=== PATIENT | female | born 1960 | race Caucasian/White ===

== ENCOUNTER 2020-04-07 14:30 | Inpatient (IN) | payer BC ==
[~2020-04-07] VITALS: Ht 160 cm; Wt 66.2 kg
--- NOTE | 2020-04-07 17:33 | NUR ---
Patient arrived from [facility] accompanied by flight nurses. Pt. in stable condition. Vital signs taken, placed on tele and 2 RN skin check completed.
[2020-04-07 17:36] VITALS: BP 112/56
[2020-04-07] MEDS ORDERED: mag hydrox/Alum hydrox/simeth 30ml oral suspension PO PRN (17:50)
[2020-04-07] MEDS ORDERED: acetaminophen 325mg tablet PO PRN (17:50)
[2020-04-07] MEDS ORDERED: ondansetron/PF 4mg/2ml inj IV PRN (17:50)
[2020-04-07] MEDS ORDERED: morphine 2 MG/ML inj. syringe IV PRN ×2 (17:50)
[2020-04-07] MEDS ORDERED: magnesium hydroxide 30ml (MOM) UD suspension PO PRN (17:50)
--- NOTE | 2020-04-07 18:24 | NUR ---
Problems reprioritized. Patient report given, questions answered & plan of care reviewed with Petty SIMPSON and Steven SIMPSON.
[2020-04-07] MEDS ORDERED: ASPI81TA52 PO (18:44)
--- NOTE | 2020-04-07 18:51 | NUR ---
Patient in room PCU 3018. I have received report from Carlee SIMPSON and had the opportunity to ask questions and assume patient care.
[2020-04-07] MEDS ORDERED: NICO-687 TOP (19:07)
[2020-04-07 19:09] LABS: BASOPHILS # (AUTO) 0.1 X10'3 (0-0.2); BASOPHILS % (AUTO) 0.7 % (0-1); EOSINOPHILS % (AUTO) 0.1 % (0-6); HEMATOCRIT 30.7 % (35.0-45.0); HEMOGLOBIN 10.2 g/dl (12.0-16.0); LYMPHOCYTES # (AUTO) 1.1 X10'3 (1.1-4.8); LYMPHOCYTES % (AUTO) 10.9 % (21-51); MEAN CORPUSCULAR HEMOGLOBIN 31.6 PG (27.0-31.0); MEAN CORPUSCULAR HGB CONC 33.1 g/dL (33.0-36.5); MEAN CORPUSCULAR VOLUME 95.5 FL (78-98); MEAN PLATELET VOLUME 8.7 FL (7.4-10.4); MONOCYTES # (AUTO) 0.4 X10'3 (0-0.9); MONOCYTES % (AUTO) 4.1 % (2-12); NEUTROPHILS # (AUTO) 8.8 X10'3 (1.8-7.7); NEUTROPHILS % (AUTO) 84.2 % (42-75); PLATELET COUNT 279 X10'3 (140-440); RED BLOOD COUNT 3.22 X10'6 (4.20-5.60); RED CELL DISTRIBUTION WIDTH 13.6 % (11.5-14.5); WHITE BLOOD COUNT 10.5 X10'3 (4.5-11.0)
[2020-04-07 19:24] LABS: ALANINE AMINOTRANSFERASE 14 U/L (12-78); ALBUMIN 3.6 G/DL (3.4-5.0); ALKALINE PHOSPHATASE 68 IU/L (46-116); ANION GAP 13 (8-16); ASPARTATE AMINO TRANSFERASE 13 U/L (10-37); BILIRUBIN,TOTAL 0.9 MG/DL (0.1-1.0); BLOOD UREA NITROGEN 13 MG/DL (7-18); BUN/CREATININE RATIO 17.6 (6.6-38.0); CALCIUM 8.9 MG/DL (8.5-10.1); CHLORIDE 105 MMOL/L (99-107); CREATININE 0.74 MG/DL (0.40-0.90); GLUCOSE 125 MG/DL (70-104); SODIUM 137 MMOL/L (135-145); TOTAL CARBON DIOXIDE 19.2 MMOL/L (24-32); TOTAL PROTEIN 7.3 G/DL (6.4-8.2); eGFR 80 ML/MIN
[2020-04-07] MEDS: furosemide 40mg/4ml inj IV SCH (21:38)
[2020-04-07] MEDS: heparin, porcine 5000 units/ml vial SQ SCH (21:40)
[2020-04-07 22:00] VITALS: BP 100/74
[2020-04-08] VITALS (7 sets, daily range): BP systolic 74–103; BP diastolic 34–67
--- NOTE | 2020-04-08 05:30 | NUR ---
Orientee documentation: I have reviewed and agree with all interventions, assessments performed and documented by Steven SIMPSON. [place]ee Medication Administration: For this medication-pass time frame, all medication were reviewed, dispensed, administered and documented per hospital policy by Steven SIMPSON.
[2020-04-08 05:56] LABS: BASOPHILS # (AUTO) 0.1 X10'3 (0-0.2); BASOPHILS % (AUTO) 0.6 % (0-1); EOSINOPHILS # (AUTO) 0.1 X10'3 (0-0.9); EOSINOPHILS % (AUTO) 0.7 % (0-6); HEMATOCRIT 30.1 % (35.0-45.0); HEMOGLOBIN 10.2 g/dl (12.0-16.0); LYMPHOCYTES # (AUTO) 2.3 X10'3 (1.1-4.8); LYMPHOCYTES % (AUTO) 20.9 % (21-51); MEAN CORPUSCULAR HEMOGLOBIN 31.8 PG (27.0-31.0); MEAN CORPUSCULAR HGB CONC 33.8 g/dL (33.0-36.5); MEAN CORPUSCULAR VOLUME 94.2 FL (78-98); MONOCYTES % (AUTO) 8.9 % (2-12); NEUTROPHILS # (AUTO) 7.5 X10'3 (1.8-7.7); NEUTROPHILS % (AUTO) 68.9 % (42-75); PLATELET COUNT 275 X10'3 (140-440); RED CELL DISTRIBUTION WIDTH 13.7 % (11.5-14.5); WHITE BLOOD COUNT 10.9 X10'3 (4.5-11.0)
[2020-04-08 06:07] LABS: ALBUMIN 3.5 G/DL (3.4-5.0); ANION GAP 13 (8-16); BLOOD UREA NITROGEN 16 MG/DL (7-18); BUN/CREATININE RATIO 19.5 (6.6-38.0); CALCIUM 8.8 MG/DL (8.5-10.1); CHLORIDE 104 MMOL/L (99-107); CREATININE 0.82 MG/DL (0.40-0.90); GLUCOSE 101 MG/DL (70-104); POTASSIUM 3.4 MMOL/L (3.5-5.1); SODIUM 138 MMOL/L (135-145); TOTAL CARBON DIOXIDE 21.4 MMOL/L (24-32); eGFR 71 ML/MIN
--- NOTE | 2020-04-08 06:12 | NUR ---
Patient in room PCU 3018. I have received report from Ro SIMPSON and had the opportunity to ask questions and assume patient care. Patient awake and oriented, offers no complaints, will continue to monitor.
--- NOTE | 2020-04-08 06:28 | NUR ---
Patient in room PCU 3018. I have received report from Petty SIMPSON and had the opportunity to ask questions and assume patient care. Patient awake and oriented, questioning when the doctor will be in today, offers no complaints, will continue to monitor.
--- NOTE | 2020-04-08 06:29 | NUR ---
Problems reprioritized. Patient report given, questions answered & plan of care reviewed with Geena SIMPSON.
[2020-04-08] MEDS: potassium Cl 20 mEq SR tablet PO SCH ×2 (07:42→20:19)
[2020-04-08] MEDS: furosemide 40mg/4ml inj IV SCH (07:43)
[2020-04-08] MEDS: heparin, porcine 5000 units/ml vial SQ SCH ×2 (07:43→20:18)
--- NOTE | 2020-04-08 08:00 | NUR ---
Spoke with Dr. Eng at nursing station, new orders obtained for tylenol, nicotine patch and melatonin.
[2020-04-08] MEDS ORDERED: acetaminophen 325mg tablet PO PRN (10:20)
--- NOTE | 2020-04-08 10:53 | NUR ---
Student Medication Administration: For this medication-pass time frame, all medication were reviewed, dispensed, administered and documented per hospital policy by Maricarmen, inpatient nursing aide.
--- NOTE | 2020-04-08 10:53 | NUR ---
Student documentation: I have reviewed and agree with all interventions, assessments performed and documented by Maricarmen, nursing manager.
[2020-04-08] MEDS: LORazepam 0.5 MG tablet PO PRN ×2 (11:03→20:19)
[2020-04-08] MEDS: nicotine 21mg patch - 24 hr TD SCH (11:03)
--- NOTE | 2020-04-08 12:01 | NUR ---
Problems reprioritized. Patient report given, questions answered & plan of care reviewed with Geena.
[2020-04-08] MEDS: Melatonin 3mg tablet PO SCH (20:19)
--- NOTE | 2020-04-08 23:15 | NUR ---
Spoke with Dr. Griffiths regarding patient's hypotension. Patient is asymptomatic, other vitals are stable including heart rate average in the 70s and SPO2 in the high 90s. Discussed history and admit diagnosis including mitral valve regurgitation and avoiding fluid boluses. No new orders at this time, will continue to monitor closely.
[2020-04-09] VITALS (17 sets, daily range): BP systolic 72–103; BP diastolic 25–77
[2020-04-09 05:09] LABS: BASOPHILS # (AUTO) 0.1 X10'3 (0-0.2); EOSINOPHILS # (AUTO) 0.2 X10'3 (0-0.9); EOSINOPHILS % (AUTO) 1.7 % (0-6); HEMATOCRIT 28.8 % (35.0-45.0); LYMPHOCYTES # (AUTO) 2.6 X10'3 (1.1-4.8); LYMPHOCYTES % (AUTO) 27.1 % (21-51); MEAN CORPUSCULAR HEMOGLOBIN 32.8 PG (27.0-31.0); MEAN CORPUSCULAR HGB CONC 34.9 g/dL (33.0-36.5); MEAN PLATELET VOLUME 9.3 FL (7.4-10.4); MONOCYTES % (AUTO) 10.8 % (2-12); NEUTROPHILS # (AUTO) 5.6 X10'3 (1.8-7.7); NEUTROPHILS % (AUTO) 59.4 % (42-75); PLATELET COUNT 272 X10'3 (140-440); RED BLOOD COUNT 3.06 X10'6 (4.20-5.60); RED CELL DISTRIBUTION WIDTH 13.6 % (11.5-14.5); WHITE BLOOD COUNT 9.5 X10'3 (4.5-11.0)
[2020-04-09 05:30] LABS: ALBUMIN 3.3 G/DL (3.4-5.0); ANION GAP 11 (8-16); BLOOD UREA NITROGEN 20 MG/DL (7-18); CALCIUM 9.1 MG/DL (8.5-10.1); CHLORIDE 104 MMOL/L (99-107); CREATININE 0.74 MG/DL (0.40-0.90); GLUCOSE 95 MG/DL (70-104); POTASSIUM 4.3 MMOL/L (3.5-5.1); SODIUM 136 MMOL/L (135-145); eGFR 80 ML/MIN
--- NOTE | 2020-04-09 06:37 | NUR ---
Problems reprioritized. Patient report given, questions answered & plan of care reviewed with Pat RN.
[2020-04-09] MEDS: heparin, porcine 5000 units/ml vial SQ SCH (08:00)
--- NOTE | 2020-04-09 09:00 | NUR ---
PATIENT'S B/P LOW DR. PAYNE AWARE. PATIENT DENIES C/P AND OR NAUSEA; HOWEVER, SOB NOTED.O2 SATS 97% ON ROOM AIR. BREATH SOUNDS WITH COARSE CRACKLES AT POSTERIOR BASES.HOB UP CALL LIGHT IN REACH. Addendum: 04/09/20 at 1446 by Jhoana Brooks RN Amended: Links added.
[2020-04-09] MEDS: nicotine 21mg patch - 24 hr TD SCH (09:33)
[2020-04-09] MEDS: potassium Cl 20 mEq SR tablet PO SCH (09:33)
--- NOTE | 2020-04-09 10:16 | NUR ---
Per telephone order from Dr. Johnson, 3 sets of 2 blood cultures ordered, to be drawn 20 minutes apart to rule out endocarditis.
--- NOTE | 2020-04-09 11:00 | NUR ---
DR. VARELA INTO SEE PATIENT AT THIS TIME AND REVIEWED RESULTS OF ECHO ALONG WITH PLAN OF CARE. DISCUSSED HEART CATH WITH PATIENT. PATIENT STATES " UNDERSTANDING OF PLAN " . PREP FOR WET PAN MIXER COMPLETED; PEDAL PULSE MARKED. Addendum: 04/09/20 at 1436 by Jhoana Brooks RN Amended: Links added.
[2020-04-09] MEDS: LORazepam 0.5 MG tablet PO PRN (12:10)
[2020-04-09] MEDS ORDERED: CefTRIAXone 2gm/D5W 50ml BAG 50 ML IV SCH (12:40)
[2020-04-09] MEDS ORDERED: midazolam 2 mg/2 ml injection ONE (13:26)
[2020-04-09] MEDS ORDERED: fentaNYL/PF 50MCG/1 ML 2ML syringe ONE (13:26)
[2020-04-09] MEDS ORDERED: LIDOcaine 1% (10mg/ml)w/preservative injection 20ml MDV ONE (13:26)
[2020-04-09] MEDS ORDERED: iohexol 350 MG/ML 50ML vial IV ONE (13:26)
[2020-04-09] MEDS ORDERED: iohexol 350MG/ML 100ml bottle IV ONE (13:26)
[2020-04-09] MEDS ORDERED: heparin 1,000 UNITS/NS 500ml 500 ML ONE ×2 (13:27)
--- NOTE | 2020-04-09 15:00 | NUR ---
RETURNED FROM [facility] MACHINE OPERATOR. VS STABLE. RIGHT AND LEFT GROIN DRESSING CDI. PEDAL PULSES POSITIVE PER PALPATION. BED FLAT CALL LIGHT IN REACH. Addendum: 04/09/20 at 2007 by Jhoana Brooks RN Amended: Links added.
--- NOTE | 2020-04-09 15:27 | NUR ---
RETURNED FROM [facility] AT THIS TIME. RT GROIN DRESSING CDI, PEDAL PULSES POSITIVE PER PALPATION. LEFT GROIN DRESSING CDI. PHARMACY NOTIFIED THAT WE HAVE NOT RECEIVED IV ANTIBIOTIC ORDERED FOR PATIENT EARLIER THIS SHIFT.PATIENT C/O BACK PAIN OF 02/27; MEDICATED WITH 2MG OF MORPHINE SULFATE IV. Addendum: 04/09/20 at 1536 by Jhoana Brooks RN Amended: Links added.
[2020-04-09] MEDS ORDERED: HYDROcodone/acetaminophen 10/325mg tab PO PRN (15:45)
[2020-04-09] MEDS ORDERED: ondansetron/PF 4mg/2ml inj IV PRN (15:45)
[2020-04-09] MEDS ORDERED: proCHLORperazine 10 MG/2 ml inj IV PRN (15:45)
[2020-04-09] MEDS ORDERED: HYDROcodone/acetaminophen 5mg/325mg tablet PO PRN (15:45)
[2020-04-09] MEDS ORDERED: OXAZEpam 15mg capsule PO PRN (15:45)
[2020-04-09] MEDS ORDERED: sodium chloride 0.45% 1,000 ML IV ONE (15:45)
[2020-04-09] MEDS: Melatonin 3mg tablet PO SCH (20:52)
[2020-04-10 02:00] VITALS: BP 95/65
[2020-04-10] MEDS: vancomycin/NS 1 GM ADD-VANTAGE 250 ML X 1 DOSE IV SCH ×3 (02:48→13:56)
--- NOTE | 2020-04-10 06:19 | NUR ---
Problems reprioritized. Patient report given, questions answered & plan of care reviewed with Juan Manuel SIMPSON.
[2020-04-10 06:32] LABS: BASOPHILS % (AUTO) 0.5 % (0-1); EOSINOPHILS # (AUTO) 0.1 X10'3 (0-0.9); EOSINOPHILS % (AUTO) 1.1 % (0-6); HEMATOCRIT 26.9 % (35.0-45.0); HEMOGLOBIN 9.3 g/dl (12.0-16.0); LYMPHOCYTES # (AUTO) 1.9 X10'3 (1.1-4.8); LYMPHOCYTES % (AUTO) 20.4 % (21-51); MEAN CORPUSCULAR HEMOGLOBIN 32.7 PG (27.0-31.0); MEAN CORPUSCULAR HGB CONC 34.6 g/dL (33.0-36.5); MEAN CORPUSCULAR VOLUME 94.5 FL (78-98); MEAN PLATELET VOLUME 9.2 FL (7.4-10.4); MONOCYTES # (AUTO) 0.8 X10'3 (0-0.9); MONOCYTES % (AUTO) 8.7 % (2-12); NEUTROPHILS # (AUTO) 6.3 X10'3 (1.8-7.7); NEUTROPHILS % (AUTO) 69.3 % (42-75); PLATELET COUNT 273 X10'3 (140-440); RED BLOOD COUNT 2.85 X10'6 (4.20-5.60); RED CELL DISTRIBUTION WIDTH 13.6 % (11.5-14.5); WHITE BLOOD COUNT 9.1 X10'3 (4.5-11.0)
[2020-04-10 06:44] LABS: ALBUMIN 3.1 G/DL (3.4-5.0); ANION GAP 8 (8-16); BLOOD UREA NITROGEN 18 MG/DL (7-18); CALCIUM 8.9 MG/DL (8.5-10.1); CHLORIDE 108 MMOL/L (99-107); CREATININE 0.75 MG/DL (0.40-0.90); GLUCOSE 91 MG/DL (70-104); POTASSIUM 4.6 MMOL/L (3.5-5.1); SODIUM 139 MMOL/L (135-145); TOTAL CARBON DIOXIDE 23.5 MMOL/L (24-32); eGFR 79 ML/MIN
[2020-04-10] MEDS: potassium Cl 20 mEq SR tablet PO SCH ×2 (08:15→17:28)
[2020-04-10] MEDS: nicotine 21mg patch - 24 hr TD SCH (08:15)
[2020-04-10] MEDS ORDERED: vancomycin/NS 1 GM ADD-VANTAGE 250 ML IV ONE (08:50)
[2020-04-10] MEDS ORDERED: gabapentin 400mg capsule PO ONE (08:50)
[2020-04-10] MEDS ORDERED: insulin glargine (Lantus) pen - multi-dose SQ PRN (08:50)
[2020-04-10] MEDS ORDERED: MALTODEXTRIN/FRUCTOSE 0.68 KCAL/ML LIQUID 296ML BOTTLE PO ONE (08:50)
[2020-04-10] MEDS ORDERED: MESSAGE TO NURSING PO ONE ×5 (08:50→10:00)
[2020-04-10] MEDS ORDERED: dextrose 50%-water 50ml dispensing syringe IV PRN (08:50)
[2020-04-10] MEDS ORDERED: Insulin Reg/NS 100units/100mL 100 ML IV SCH (08:50)
[2020-04-10] MEDS ORDERED: cefazolin/dext.iso 2gm/50ml 50 ML IV ONE (08:50)
[2020-04-10 09:46] LABS: PARTIAL THROMBOPLASTIN TIME 29 SECONDS (22-32)
[2020-04-10] MEDS ORDERED: pneumococcal 23-VAL P-sac vacc 25 mcg/0.5ml vial IMVAC ONE (10:20)
[2020-04-10] MEDS ORDERED: ringers solution, lacted 1,000 ML IV ONE (11:05)
--- NOTE | 2020-04-10 11:08 | NUR ---
Reviewed and agree with student's physical assessment.
[2020-04-10 12:00] VITALS: BP 102/63
[2020-04-10 12:10] LABS: ABG BASE EXCESS -5.8 mmol/L (-2.0-2.0); ABG HCO3 16.8 mmol/L (22.0-26.0); ABG OXYGEN SATURATION 95.6 % (94-97); ABG PCO2 (T) 24.1 mmHg (32.0-45.0); ABG PO2 (T) 79.6 mmHg (75.0-100.0); ALLEN'S TEST POSITIVE; FCOHb 0.3 % (0.0-3.9); FO2Hb 95.3 % (94-97); TOTAL HEMOGLOBIN 9.2 G/dl (12.0-16.0)
[2020-04-10 15:00] VITALS: BP 96/57
--- NOTE | 2020-04-10 15:57 | NUR ---
PAGER ID: [phone] MESSAGE: PEDRO [phone] Lee Alexander rapid response TATIANA Zambrano Ext [phone] Addendum: 04/10/20 at 1557 by Juan Manuel De La Garza RN wrong patient
--- NOTE | 2020-04-10 17:35 | NUR ---
dr. rick paged: PAGER ID: [phone] MESSAGE: [phone]: ASAD - surgery NOT until MON. super anxious. can we get order for Ativan PRN? thank you nurse Erika [phone]
--- NOTE | 2020-04-10 17:59 | NUR ---
Problems reprioritized. Patient report given, questions answered & plan of care reviewed with TATIANA Taylor.
[2020-04-10 18:00] VITALS: BP 98/54
[2020-04-10] MEDS: Melatonin 3mg tablet PO SCH (20:46)
[2020-04-10] MEDS: lactobacillus rhamnosus 10,000 MMU CELLS/CAPSULE PO SCH (20:46)
[2020-04-10] MEDS: LORazepam 2 mg/ml vial IV PRN (20:47)
[2020-04-10 22:00] VITALS: BP 85/49
[2020-04-11] MEDS: vancomycin/NS 1 GM ADD-VANTAGE 250 ML X 1 DOSE IV SCH (01:22)
[2020-04-11 02:00] VITALS: BP 91/59
[2020-04-11] MEDS ORDERED: LORazepam 2 mg/ml vial IV ONE (06:00)
[2020-04-11 06:04] LABS: BASOPHILS # (AUTO) 0.1 X10'3 (0-0.2); BASOPHILS % (AUTO) 0.9 % (0-1); EOSINOPHILS # (AUTO) 0.1 X10'3 (0-0.9); EOSINOPHILS % (AUTO) 2.1 % (0-6); HEMOGLOBIN 8.7 g/dl (12.0-16.0); LYMPHOCYTES # (AUTO) 2.1 X10'3 (1.1-4.8); LYMPHOCYTES % (AUTO) 33.1 % (21-51); MEAN CORPUSCULAR HEMOGLOBIN 31.7 PG (27.0-31.0); MEAN CORPUSCULAR HGB CONC 33.5 g/dL (33.0-36.5); MEAN CORPUSCULAR VOLUME 94.4 FL (78-98); MEAN PLATELET VOLUME 9.5 FL (7.4-10.4); MONOCYTES # (AUTO) 0.6 X10'3 (0-0.9); MONOCYTES % (AUTO) 9.4 % (2-12); NEUTROPHILS # (AUTO) 3.5 X10'3 (1.8-7.7); NEUTROPHILS % (AUTO) 54.5 % (42-75); PLATELET COUNT 257 X10'3 (140-440); RED BLOOD COUNT 2.75 X10'6 (4.20-5.60); RED CELL DISTRIBUTION WIDTH 13.8 % (11.5-14.5); WHITE BLOOD COUNT 6.5 X10'3 (4.5-11.0)
[2020-04-11 06:07] LABS: ALBUMIN 2.9 G/DL (3.4-5.0); ANION GAP 8 (8-16); BLOOD UREA NITROGEN 15 MG/DL (7-18); BUN/CREATININE RATIO 20.8 (6.6-38.0); CALCIUM 8.5 MG/DL (8.5-10.1); CHLORIDE 108 MMOL/L (99-107); CREATININE 0.72 MG/DL (0.40-0.90); GLUCOSE 92 MG/DL (70-104); POTASSIUM 4.6 MMOL/L (3.5-5.1); SODIUM 140 MMOL/L (135-145); eGFR 82 ML/MIN
--- NOTE | 2020-04-11 06:38 | NUR ---
Problems reprioritized. Patient report given, questions answered & plan of care reviewed with Pat RN.
[2020-04-11] MEDS: LORazepam 0.5 MG tablet PO PRN (07:23)
[2020-04-11] MEDS: nicotine 21mg patch - 24 hr TD SCH (07:23)
--- NOTE | 2020-04-11 11:44 | NUR ---
I have reviewed and agree with all medications administered and interventions performed by [facility] Student Macey Elizondo.
[2020-04-11] MEDS ORDERED: VANCOMYCIN LEVEL IV ONE (13:30)
[2020-04-11] MEDS ORDERED: VANCOmycin 1250MG/NS 250ml Bag 250 ML IV SCH (17:00)
[2020-04-11 18:00] VITALS: BP 104/56
[2020-04-11] MEDS: LORazepam 2 mg/ml vial IV PRN (20:24)
[2020-04-11] MEDS: Melatonin 3mg tablet PO SCH (20:24)
[2020-04-11 22:00] VITALS: BP 76/42
[2020-04-12] VITALS (17 sets, daily range): BP systolic 92–125; BP diastolic 50–66
[2020-04-12 03:00] LABS: BASOPHILS # (AUTO) 0.1 X10'3 (0-0.2); BASOPHILS % (AUTO) 0.8 % (0-1); EOSINOPHILS # (AUTO) 0.2 X10'3 (0-0.9); EOSINOPHILS % (AUTO) 2.4 % (0-6); HEMATOCRIT 27.2 % (35.0-45.0); LYMPHOCYTES # (AUTO) 2.1 X10'3 (1.1-4.8); LYMPHOCYTES % (AUTO) 26.5 % (21-51); MEAN CORPUSCULAR HGB CONC 33.2 g/dL (33.0-36.5); MEAN CORPUSCULAR VOLUME 93.2 FL (78-98); MONOCYTES # (AUTO) 0.7 X10'3 (0-0.9); MONOCYTES % (AUTO) 9.2 % (2-12); NEUTROPHILS # (AUTO) 4.9 X10'3 (1.8-7.7); NEUTROPHILS % (AUTO) 61.1 % (42-75); PLATELET COUNT 277 X10'3 (140-440); RED BLOOD COUNT 2.92 X10'6 (4.20-5.60); RED CELL DISTRIBUTION WIDTH 13.8 % (11.5-14.5); WHITE BLOOD COUNT 8.1 X10'3 (4.5-11.0)
[2020-04-12 03:03] LABS: ALBUMIN 3.2 G/DL (3.4-5.0); ANION GAP 12 (8-16); BLOOD UREA NITROGEN 18 MG/DL (7-18); BUN/CREATININE RATIO 23.1 (6.6-38.0); CALCIUM 8.8 MG/DL (8.5-10.1); CHLORIDE 104 MMOL/L (99-107); CREATININE 0.78 MG/DL (0.40-0.90); GLUCOSE 103 MG/DL (70-104); POTASSIUM 3.9 MMOL/L (3.5-5.1); SODIUM 138 MMOL/L (135-145); TOTAL CARBON DIOXIDE 21.8 MMOL/L (24-32); eGFR 75 ML/MIN
[2020-04-12 04:39] LABS: PARTIAL THROMBOPLASTIN TIME 29 SECONDS (22-32)
[2020-04-12] MEDS: mupirocin 2% nasal ointment 1gm UD NS SCH ×2 (05:27→19:59)
[2020-04-12] MEDS ORDERED: ringers solution, lacted 1,000 ML IV ONE (06:00)
[2020-04-12] MEDS ORDERED: MALTODEXTRIN/FRUCTOSE 0.68 KCAL/ML LIQUID 296ML BOTTLE PO ONE (06:00)
[2020-04-12] MEDS ORDERED: vancomycin/NS 1 GM ADD-VANTAGE 250 ML IV ONE (06:00)
[2020-04-12] MEDS ORDERED: metoprolol tartrate 12.5mg (1/2 tablet) PO SCH (06:00)
[2020-04-12] MEDS ORDERED: gabapentin 400mg capsule PO ONE (06:00)
[2020-04-12] MEDS ORDERED: famotidine/PF 10 mg/ml inj IV ONE (06:00)
[2020-04-12] MEDS ORDERED: ceFAZolin 1000mg inj ONE (06:25)
[2020-04-12] MEDS ORDERED: epiNEPHrine 1 mg/ml inj ONE (06:25)
[2020-04-12] MEDS ORDERED: MIDAZolam 1mg/ml 10ml vial ONE (06:56)
[2020-04-12] MEDS ORDERED: SUFENTANIL CITRATE 50 MCG/ML 2ml ampule IV ONE (06:57)
[2020-04-12] MEDS ORDERED: fentaNYL/PF 50MCG/1 ML 2ML syringe IV PRN (07:10)
[2020-04-12] MEDS ORDERED: midazolam 2 mg/2 ml injection IV ONE (07:10)
[2020-04-12] MEDS: lactobacillus rhamnosus 10,000 MMU CELLS/CAPSULE PO SCH ×2 (07:30→19:59)
[2020-04-12] MEDS ORDERED: DOPamine/D5W 400mg/250ml bag IV ONE (07:40)
[2020-04-12] MEDS ORDERED: NORepinephrine 8 MG in NS 250 ML BAG (32 mcg/ml) IV ONE (07:40)
[2020-04-12] MEDS ORDERED: dexamethasone sod phosphate 10mg/ml inj ONE (07:40)
[2020-04-12] MEDS ORDERED: isoflurane 100ml inhalation liquid IH ONE (07:40)
[2020-04-12] MEDS ORDERED: protamine sulf. 10mg/ml inj. IV ONE (07:40)
[2020-04-12] MEDS ORDERED: INSULIN R 100 UNIT in NS 100ML (1 UNIT/1 ML) BAG IV ONE (07:40)
[2020-04-12] MEDS ORDERED: nitroGLYCERIN in D5W 50mg/250ml (Tridil) infusion IV ONE (07:40)
[2020-04-12] MEDS ORDERED: acetaminophen 1000 MG/100ml vial IV ONE (07:40)
[2020-04-12] MEDS ORDERED: LIDOcaine 2% (20mg/ml) 5ml vial ONE (07:41)
[2020-04-12] MEDS ORDERED: propofol inj 20 ML IV ONE (07:41)
[2020-04-12] MEDS ORDERED: 0.9 % SODIUM CHLORIDE 10 ML VIAL ONE ×3 (07:41)
[2020-04-12] MEDS ORDERED: phenylephrine 10mg/ml inj. ONE ×2 (07:41→08:00)
[2020-04-12] MEDS ORDERED: ePHEDrine 50MG/ML INJ. ONE (07:41)
[2020-04-12] MEDS ORDERED: rocuronium 10mg/ml inj IV ONE ×2 (07:41)
[2020-04-12] MEDS ORDERED: cefazolin/dext.iso 2gm/50ml 50 ML IV ONE (08:00)
[2020-04-12] MEDS ORDERED: aminocaproic acid 250 MG/1 ML inj. ONE (08:00)
[2020-04-12] MEDS ORDERED: potassium Cl 2 mEq/ml inj IV ONE (08:00)
[2020-04-12] MEDS ORDERED: methylPREDNISolone sod succ 1000mg vial ONE (08:00)
[2020-04-12] MEDS ORDERED: sodium bicarbonate (8.4%) 1 mEq/ml syringe ONE (08:00)
[2020-04-12] MEDS ORDERED: LIDOcaine 2% (20 mg/ml) 5ml cardiac syringe ONE (08:00)
[2020-04-12] MEDS ORDERED: albumin (human) 25% 100 ML IV solution IV ONE (08:00)
[2020-04-12] MEDS ORDERED: calcium chloride 100 MG/1 ML inj IV ONE (08:00)
[2020-04-12] MEDS ORDERED: LORazepam 2 mg/ml vial IV ONE (08:00)
[2020-04-12] MEDS ORDERED: heparin 1,000 units/ml 10ml inj ONE (08:00)
[2020-04-12] MEDS ORDERED: heparin 10,000 units/1 ML INJ ONE (08:00)
[2020-04-12] MEDS: nicotine 21mg patch - 24 hr TD SCH (08:00)
[2020-04-12] MEDS ORDERED: NORepinephrine 1 mg/ml inj IV ONE (08:00)
[2020-04-12] MEDS ORDERED: MAGNESIUM SULFATE 4 MEQ/ML (5gm/10ml) injection ONE (08:00)
[2020-04-12] MEDS: potassium Cl 20 mEq SR tablet PO SCH ×2 (08:30→17:10)
[2020-04-12] MEDS ORDERED: dexamethasone sod phosphate 4mg/ml inj. ONE (10:00)
[2020-04-12] MEDS ORDERED: ondansetron/PF 4mg/2ml inj ONE (10:00)
[2020-04-12] MEDS ORDERED: normal saline 250ml IV soln 250 ML IV PRN (10:05)
[2020-04-12] MEDS ORDERED: nitroGLYCERIN-Tridil 50MG/D5W 250 ML IV PRN (10:05)
[2020-04-12] MEDS ORDERED: sodium phosphate inj. 30 MMOL in dextrose 5%-water 250 ML IV PRN (10:05)
[2020-04-12] MEDS ORDERED: ondansetron/PF 4mg/2ml inj IV PRN (10:05)
[2020-04-12] MEDS ORDERED: pantoprazole 40 MG vial IV ONE (10:05)
[2020-04-12] MEDS ORDERED: metoclopramide 5 mg/ml inj IV PRN (10:05)
[2020-04-12] MEDS ORDERED: morphine 4 MG/ML inj SYRINge IV PRN ×2 (10:05)
[2020-04-12] MEDS ORDERED: sodium phosphate inj. 15 MMOL in dextrose 5%-water 250 ML IV PRN (10:05)
[2020-04-12] MEDS ORDERED: insulin glargine (Lantus) pen - multi-dose SQ PRN (10:05)
[2020-04-12] MEDS ORDERED: Neutra Phos packet PO PRN (10:05)
[2020-04-12] MEDS ORDERED: acetaminophen 325mg tablet PO PRN ×2 (10:05)
[2020-04-12] MEDS ORDERED: niCARDipine-NS 40mg/200ml IVPB 200 ML IV PRN (10:05)
[2020-04-12] MEDS ORDERED: dextrose 50%-water 50ml dispensing syringe IV PRN (10:05)
[2020-04-12] MEDS ORDERED: Insulin Reg/NS 100units/100mL 100 ML IV SCH (10:05)
[2020-04-12] MEDS ORDERED: NORepinephrine 8mg/ 250ml NS 250 ML IV SCH (10:30)
--- NOTE | 2020-04-12 10:34 | NUR ---
Nutrition consult: Pt admit with severe mitral regurgitation and acute CHF exacerbation. Pt s/p MVR today and would benefit from nutrition therapy education once stable. Pt previously on a heart healthy diet initially with average 50% PO intake up to 75-100% PO intake most recent meals. Pt now with an active full liquid no concentrated sweets diet post-op. LBM 04/08. PRN bowel care available. Will continue to follow and monitor need for ONS pending post-op trends in PO intake. Recommendations: 1) Advance to heart healthy diet as medically indicated 2) Monitor need for additional protein/ONS 3) Routine bowel care 4) Scaled weights per rx Addendum: 04/12/20 at [address] Amended: Links added.
[2020-04-12 10:40] LABS: ABG BASE EXCESS -4.1 mmol/L (-2.0-2.0); ABG HCO3 19.3 mmol/L (22.0-26.0); ABG OXYGEN SATURATION 99.1 % (94-97); ABG PCO2 (T) 30.9 mmHg (32.0-45.0); ABG PO2 (T) 225.2 mmHg (75.0-100.0); FCOHb 0.3 % (0.0-3.9); FMetHb 0.4 % (0.0-1.5); FO2Hb 98.4 % (94-97); PEEP 5 cm H2O; RESPIRATORY RATE 12 b/min; TIDAL VOLUME 500 mL; TOTAL HEMOGLOBIN 13.4 G/dl (12.0-16.0)
[2020-04-12 10:46] LABS: BASOPHILS % (AUTO) 0.2 % (0-1); EOSINOPHILS # (AUTO) 0.1 X10'3 (0-0.9); EOSINOPHILS % (AUTO) 0.6 % (0-6); HEMATOCRIT 38.2 % (35.0-45.0); HEMOGLOBIN 12.8 g/dl (12.0-16.0); LYMPHOCYTES # (AUTO) 1.2 X10'3 (1.1-4.8); LYMPHOCYTES % (AUTO) 7.4 % (21-51); MEAN CORPUSCULAR HEMOGLOBIN 31.4 PG (27.0-31.0); MEAN CORPUSCULAR HGB CONC 33.5 g/dL (33.0-36.5); MEAN CORPUSCULAR VOLUME 93.7 FL (78-98); MONOCYTES # (AUTO) 0.3 X10'3 (0-0.9); NEUTROPHILS # (AUTO) 14.8 X10'3 (1.8-7.7); NEUTROPHILS % (AUTO) 89.8 % (42-75); PLATELET COUNT 115 X10'3 (140-440); RED BLOOD COUNT 4.08 X10'6 (4.20-5.60); RED CELL DISTRIBUTION WIDTH 13.7 % (11.5-14.5); WHITE BLOOD COUNT 16.5 X10'3 (4.5-11.0)
[2020-04-12 10:54] LABS: ALBUMIN 2.8 G/DL (3.4-5.0); ANION GAP 9 (8-16); BLOOD UREA NITROGEN 14 MG/DL (7-18); BUN/CREATININE RATIO 19.4 (6.6-38.0); CALCIUM 8.4 MG/DL (8.5-10.1); CHLORIDE 107 MMOL/L (99-107); CREATININE 0.72 MG/DL (0.40-0.90); GLUCOSE 145 MG/DL (70-104); MAGNESIUM 3.9 MG/DL (1.5-2.4); POTASSIUM 4.2 MMOL/L (3.5-5.1); SODIUM 142 MMOL/L (135-145); TOTAL CARBON DIOXIDE 26.5 MMOL/L (24-32); eGFR 82 ML/MIN
[2020-04-12 10:56] LABS: PARTIAL THROMBOPLASTIN TIME 27 SECONDS (22-32)
[2020-04-12 11:10] LABS: ISTAT HGB ART 9.5 g/dl (12.0-16.0); ISTAT Hct ART 28 %PCV (35-48); ISTAT O2 SATURATION ARTERIAL 100 % (95-98); ISTAT SOURCE ART
[2020-04-12 11:11] LABS: ALANINE AMINOTRANSFERASE 17 U/L (12-78); ALBUMIN/GLOBULIN RATIO 1.1 (1.1-1.5); ALKALINE PHOSPHATASE 43 IU/L (46-116); ASPARTATE AMINO TRANSFERASE 23 U/L (10-37); BILIRUBIN,TOTAL 0.7 MG/DL (0.1-1.0); TOTAL PROTEIN 5.4 G/DL (6.4-8.2)
[2020-04-12] MEDS ORDERED: potassium Cl 20 mEq SR tablet PO PRN (12:00)
[2020-04-12] MEDS ORDERED: potassium CL 10mEq/100ml bag 100 ML IV PRN (12:00)
[2020-04-12] MEDS ORDERED: magnesium 2GM in 50ml NS 50 ML IV PRN (12:00)
[2020-04-12] MEDS ORDERED: magnesium 4gm in 100ml NS 100 ML IV PRN (12:00)
[2020-04-12 12:04] LABS: PHOSPHORUS 3.8 MG/DL (2.3-4.5)
[2020-04-12] MEDS: albumin (Human) 5% 250ml 250 ML IV PRN ×4 (12:12→16:28)
[2020-04-12] MEDS: potassium Cl 20mEq/100mL bag 100 ML IV PRN ×2 (12:14→13:11)
[2020-04-12] MEDS: gabapentin 300mg capsule PO SCH ×2 (12:15→21:19)
[2020-04-12 15:45] LABS: ABG BASE EXCESS -5.5 mmol/L (-2.0-2.0); ABG HCO3 18.5 mmol/L (22.0-26.0); ABG OXYGEN SATURATION 96.5 % (94-97); ABG PCO2 (T) 31.3 mmHg (32.0-45.0); ABG PO2 (T) 91.8 mmHg (75.0-100.0); FCOHb 0.1 % (0.0-3.9); FMetHb 0.1 % (0.0-1.5); FO2Hb 96.3 % (94-97); PEEP 5 cm H2O; TOTAL HEMOGLOBIN 11.4 G/dl (12.0-16.0)
[2020-04-12] MEDS: albuterol 2.5 MG/3 ML nebule NEB PRN (15:56)
--- NOTE | 2020-04-12 16:00 | NUR ---
Called Dr. Quiroz about steady drop in blood pressure and CVP/PAD with stable CI. Per MD, okay to administer up to x3 more Albumin and to have a goal SBP around 100mmHg. Also, orders to A-Pace to 80bpm. Okay to extubate per parameters; aware of Bicarb of 18.
[2020-04-12] MEDS: ceFAZolin 1GM/D5W- ADD-VANTAGE 50 ML IV SCH (16:15)
[2020-04-12 16:40] LABS: BASOPHILS % (AUTO) 0.1 % (0-1); EOSINOPHILS % (AUTO) 0 % (0-6); HEMATOCRIT 31.9 % (35.0-45.0); HEMOGLOBIN 10.7 g/dl (12.0-16.0); LYMPHOCYTES # (AUTO) 0.3 X10'3 (1.1-4.8); LYMPHOCYTES % (AUTO) 3.2 % (21-51); MEAN CORPUSCULAR HEMOGLOBIN 31.8 PG (27.0-31.0); MEAN CORPUSCULAR HGB CONC 33.6 g/dL (33.0-36.5); MEAN CORPUSCULAR VOLUME 94.6 FL (78-98); MEAN PLATELET VOLUME 9.2 FL (7.4-10.4); MONOCYTES # (AUTO) 0.1 X10'3 (0-0.9); MONOCYTES % (AUTO) 1.4 % (2-12); NEUTROPHILS # (AUTO) 8.6 X10'3 (1.8-7.7); NEUTROPHILS % (AUTO) 95.3 % (42-75); PLATELET COUNT 108 X10'3 (140-440); RED BLOOD COUNT 3.37 X10'6 (4.20-5.60); RED CELL DISTRIBUTION WIDTH 13.7 % (11.5-14.5)
[2020-04-12 16:47] LABS: ALBUMIN 3.5 G/DL (3.4-5.0); ANION GAP 9 (8-16); BLOOD UREA NITROGEN 13 MG/DL (7-18); BUN/CREATININE RATIO 17.6 (6.6-38.0); CALCIUM 7.6 MG/DL (8.5-10.1); CHLORIDE 111 MMOL/L (99-107); CREATININE 0.74 MG/DL (0.40-0.90); GLUCOSE 124 MG/DL (70-104); MAGNESIUM 2.6 MG/DL (1.5-2.4); PHOSPHORUS 3.4 MG/DL (2.3-4.5); POTASSIUM 4.5 MMOL/L (3.5-5.1); SODIUM 145 MMOL/L (135-145); TOTAL CARBON DIOXIDE 25.5 MMOL/L (24-32); eGFR 80 ML/MIN
--- NOTE | 2020-04-12 18:19 | NUR ---
Received to room 2012, accompanied by MDs and surgical crew. Placed on ventilator, to patient monitor, arterial line and PA line pressure monitored. Chest tubes to suction at 20 cm. Navarro cath to gravity drainage. Dressings are dry and intact. See assessment record. All vasoactive drugs are infusing via central line. Addendum: 04/12/20 at 1819 by Larry Marshall RN Arrived to unit at 1030
--- NOTE | 2020-04-12 18:20 | NUR ---
Problems reprioritized. Patient report given, questions answered & plan of care reviewed with Amanda SIMPSON.
--- NOTE | 2020-04-12 18:35 | NUR ---
I have received report and assumed care of pt, Pt resting in bed, rise and fall of chest cavity equile and symmetrical, chest tube in place no crepitus, no tracheal deviation, assessment complete
[2020-04-12] MEDS: HYDROcodone/acetaminophen 10/325mg tab PO PRN (19:59)
[2020-04-12] MEDS: VANCOmycin 1250MG/NS 250ml Bag 250 ML IV SCH (19:59)
[2020-04-12] MEDS ORDERED: mupirocin 2% ointment 22GM NS SCH (20:00)
[2020-04-12] MEDS ORDERED: vancomycin/NS 1 GM ADD-VANTAGE 250 ML IV SCH (20:00)
[2020-04-12] MEDS: atorvastatin 10mg tablet PO SCH (21:20)
--- NOTE | 2020-04-12 21:27 | NUR ---
hs cares complete pt tolerated well
[2020-04-12] MEDS: Melatonin 3mg tablet PO SCH (23:26)
[2020-04-13] VITALS (24 sets, daily range): BP systolic 97–130; BP diastolic 41–72
[2020-04-13] MEDS: albuterol 2.5 MG/3 ML nebule NEB PRN (00:12)
[2020-04-13] MEDS: HYDROcodone/acetaminophen 10/325mg tab PO PRN ×4 (00:28→19:23)
[2020-04-13] MEDS: ceFAZolin 1GM/D5W- ADD-VANTAGE 50 ML IV SCH ×3 (00:28→16:33)
--- NOTE | 2020-04-13 00:40 | NUR ---
no changes in condition noted
[2020-04-13 02:43] LABS: BASOPHILS % (AUTO) 0.2 % (0-1); EOSINOPHILS % (AUTO) 0 % (0-6); HEMATOCRIT 28.5 % (35.0-45.0); HEMOGLOBIN 9.5 g/dl (12.0-16.0); LYMPHOCYTES # (AUTO) 0.5 X10'3 (1.1-4.8); LYMPHOCYTES % (AUTO) 4.4 % (21-51); MEAN CORPUSCULAR HEMOGLOBIN 31.3 PG (27.0-31.0); MEAN CORPUSCULAR HGB CONC 33.4 g/dL (33.0-36.5); MEAN CORPUSCULAR VOLUME 93.5 FL (78-98); MEAN PLATELET VOLUME 9.6 FL (7.4-10.4); MONOCYTES # (AUTO) 0.9 X10'3 (0-0.9); MONOCYTES % (AUTO) 7.3 % (2-12); NEUTROPHILS # (AUTO) 11.1 X10'3 (1.8-7.7); NEUTROPHILS % (AUTO) 88.1 % (42-75); PLATELET COUNT 107 X10'3 (140-440); RED BLOOD COUNT 3.05 X10'6 (4.20-5.60); RED CELL DISTRIBUTION WIDTH 13.8 % (11.5-14.5); WHITE BLOOD COUNT 12.5 X10'3 (4.5-11.0)
[2020-04-13 03:03] LABS: CHLORIDE 109 MMOL/L (99-107); POTASSIUM 4.2 MMOL/L (3.5-5.1); SODIUM 142 MMOL/L (135-145)
[2020-04-13 03:40] LABS: ALANINE AMINOTRANSFERASE 17 U/L (12-78); ALBUMIN 3.5 G/DL (3.4-5.0); ALBUMIN/GLOBULIN RATIO 1.5 (1.1-1.5); ALKALINE PHOSPHATASE 35 IU/L (46-116); ANION GAP 11 (8-16); ASPARTATE AMINO TRANSFERASE 27 U/L (10-37); BILIRUBIN,TOTAL 0.7 MG/DL (0.1-1.0); BLOOD UREA NITROGEN 13 MG/DL (7-18); BUN/CREATININE RATIO 20.6 (6.6-38.0); CALCIUM 7.5 MG/DL (8.5-10.1); CREATININE 0.63 MG/DL (0.40-0.90); GLUCOSE 124 MG/DL (70-104); MAGNESIUM 2.3 MG/DL (1.5-2.4); TOTAL PROTEIN 5.8 G/DL (6.4-8.2); eGFR > 90 ML/MIN
--- NOTE | 2020-04-13 06:28 | NUR ---
report given to rec rn plan of care reviewed
[2020-04-13] MEDS: mupirocin 2% nasal ointment 1gm UD NS SCH ×2 (07:50→20:21)
[2020-04-13] MEDS: gabapentin 300mg capsule PO SCH ×3 (07:50→20:21)
[2020-04-13] MEDS: metoprolol tartrate 12.5mg (1/2 tablet) PO SCH ×2 (07:50→20:00)
[2020-04-13] MEDS: potassium Cl 20 mEq SR tablet PO SCH ×2 (07:50→16:32)
[2020-04-13] MEDS: aspirin 325mg tablet, delayed-release (Ecotrin) PO SCH (07:50)
[2020-04-13] MEDS: lactobacillus rhamnosus 10,000 MMU CELLS/CAPSULE PO SCH ×2 (07:50→20:20)
[2020-04-13] MEDS: VANCOmycin 1250MG/NS 250ml Bag 250 ML IV SCH ×2 (07:50→20:21)
[2020-04-13] MEDS: nicotine 21mg patch - 24 hr TD SCH (07:51)
[2020-04-13] MEDS ORDERED: mineral oil/petrolatum ophthal oint EACHEYE SCH (08:00)
--- NOTE | 2020-04-13 12:01 | NUR ---
ART, PA, and jasmine removed without complications. CVL redressed
--- NOTE | 2020-04-13 18:30 | NUR ---
Patient in room CICU 2011. I have received report from TATIANA Osborne and had the opportunity to ask questions and assume patient care. Patient sitting up at bedside. No signs of distress. Safety measures in place. Call light and personal items within reach. Will continue to monitor for remainder of shift.
[2020-04-13] MEDS ORDERED: VANCOMYCIN LEVEL IV ONE (19:30)
--- NOTE | 2020-04-13 20:00 | NUR ---
Patient up to commode. Stood up with assistance. No EKG changes, denies dizziness. Appeared steady to stand. First void since removal of jasmine catheter. 275ml output. Chest tube secure and in place, no excessive drainage upon standing. Patient assisted back to bed. Safety measures in place, non-skid socks on, bed in low and locked position. Call light and personal items within reach. Will continue to monitor throughout shift.
[2020-04-13] MEDS: atorvastatin 10mg tablet PO SCH (20:20)
[2020-04-13] MEDS: Melatonin 3mg tablet PO SCH (20:20)
[2020-04-14] VITALS (15 sets, daily range): BP systolic 89–120; BP diastolic 41–62
[2020-04-14] MEDS: HYDROcodone/acetaminophen 10/325mg tab PO PRN ×2 (00:44→09:40)
[2020-04-14] MEDS: ceFAZolin 1GM/D5W- ADD-VANTAGE 50 ML IV SCH (00:49)
--- NOTE | 2020-04-14 00:55 | NUR ---
Patient up to commode. Chest tube in tact and draining. No excessive draining observed upon standing. Patient displayed some dizziness when standing, but quickly regained sense of stability. Was able to transfer to the commode with assistance safely. No changes to EKG or vitals with standing. No signs of distress aside from expressing pain 5/10. Voided, and was assisted back to bed without incident. Safety measures in place, bed in low and locked position. Call light and personal items within reach. Will continue to monitor throughout shift.
[2020-04-14 03:16] LABS: BASOPHILS % (AUTO) 0.1 % (0-1); EOSINOPHILS % (AUTO) 0.1 % (0-6); HEMOGLOBIN 9.1 g/dl (12.0-16.0); LYMPHOCYTES # (AUTO) 1.4 X10'3 (1.1-4.8); LYMPHOCYTES % (AUTO) 10.2 % (21-51); MEAN CORPUSCULAR HEMOGLOBIN 31.6 PG (27.0-31.0); MEAN CORPUSCULAR HGB CONC 33.5 g/dL (33.0-36.5); MEAN CORPUSCULAR VOLUME 94.1 FL (78-98); MEAN PLATELET VOLUME 9.2 FL (7.4-10.4); MONOCYTES # (AUTO) 1.3 X10'3 (0-0.9); MONOCYTES % (AUTO) 9.2 % (2-12); NEUTROPHILS # (AUTO) 11.2 X10'3 (1.8-7.7); NEUTROPHILS % (AUTO) 80.4 % (42-75); PLATELET COUNT 133 X10'3 (140-440); RED BLOOD COUNT 2.87 X10'6 (4.20-5.60); RED CELL DISTRIBUTION WIDTH 13.9 % (11.5-14.5); WHITE BLOOD COUNT 13.9 X10'3 (4.5-11.0)
[2020-04-14 03:31] LABS: ALANINE AMINOTRANSFERASE 17 U/L (12-78); ALBUMIN 2.9 G/DL (3.4-5.0); ALKALINE PHOSPHATASE 40 IU/L (46-116); ANION GAP 7 (8-16); ASPARTATE AMINO TRANSFERASE 24 U/L (10-37); BILIRUBIN,TOTAL 0.5 MG/DL (0.1-1.0); BLOOD UREA NITROGEN 13 MG/DL (7-18); BUN/CREATININE RATIO 22.8 (6.6-38.0); CALCIUM 8.1 MG/DL (8.5-10.1); CHLORIDE 106 MMOL/L (99-107); CREATININE 0.57 MG/DL (0.40-0.90); GLUCOSE 119 MG/DL (70-104); PHOSPHORUS 2.4 MG/DL (2.3-4.5); POTASSIUM 4.5 MMOL/L (3.5-5.1); SODIUM 139 MMOL/L (135-145); TOTAL CARBON DIOXIDE 26.5 MMOL/L (24-32); TOTAL PROTEIN 5.7 G/DL (6.4-8.2); eGFR > 90 ML/MIN
[2020-04-14] MEDS ORDERED: Insulin Reg/NS 100units/100mL 100 ML IV SCH (05:30)
[2020-04-14] MEDS: nicotine 21mg patch - 24 hr TD SCH (07:53)
[2020-04-14] MEDS: gabapentin 300mg capsule PO SCH (07:54)
[2020-04-14] MEDS: lactobacillus rhamnosus 10,000 MMU CELLS/CAPSULE PO SCH ×2 (07:55→20:20)
[2020-04-14] MEDS: mupirocin 2% nasal ointment 1gm UD NS SCH ×2 (07:55→20:00)
[2020-04-14] MEDS: aspirin 325mg tablet, delayed-release (Ecotrin) PO SCH (07:55)
[2020-04-14] MEDS: pantoprazole 40mg Tablet.DR PO SCH (07:55)
[2020-04-14] MEDS: potassium Cl 20 mEq SR tablet PO SCH ×2 (07:55→20:00)
[2020-04-14] MEDS: metoprolol tartrate 12.5mg (1/2 tablet) PO SCH ×2 (07:56→20:21)
[2020-04-14] MEDS ORDERED: VANCOMYCIN LEVEL IV ONE (08:00)
[2020-04-14] MEDS: aspirin 81mg tablet.DR PO SCH (08:35)
[2020-04-14] MEDS ORDERED: nicotine 21mg patch - 24 hr TD SCH (08:35)
[2020-04-14] MEDS ORDERED: magnesium 4gm in 100ml NS 100 ML IV PRN (08:40)
[2020-04-14] MEDS ORDERED: potassium Cl 20 mEq SR tablet PO PRN (08:40)
[2020-04-14] MEDS ORDERED: potassium Cl 20mEq/100mL bag 100 ML IV PRN (08:40)
[2020-04-14] MEDS ORDERED: magnesium 2GM in 50ml NS 50 ML IV PRN (08:40)
--- NOTE | 2020-04-14 13:14 | NUR ---
Patient in room CICU 2011, going to RM 307. I have received report from TATIANA Coronado and had the opportunity to ask questions and assume patient care.
--- NOTE | 2020-04-14 13:28 | NUR ---
1000- Discontinued Chest tube and pacer wires by PA, site clear, tolerated no O2 while awake, needs 1 liter while asleep. 1330- Report given to Delicia on [facility]. 1400- All belongings transported with patient to [facility].
--- NOTE | 2020-04-14 18:00 | NUR ---
Student documentation: I have reviewed and agree with all interventions, medication passes, assessments performed and documented by SN Sushma.
--- NOTE | 2020-04-14 18:00 | NUR ---
Problems reprioritized. Patient report given, questions answered & plan of care reviewed with TATIANA Lizarraga.
--- NOTE | 2020-04-14 19:14 | NUR ---
Patient in room MED 307. I have received report from Anila SIMPSON and had the opportunity to ask questions and assume patient care.
[2020-04-14] MEDS: Melatonin 3mg tablet PO SCH (20:19)
[2020-04-14] MEDS: magnesium Cl slow-release 64mg tablet PO SCH (20:20)
[2020-04-14] MEDS: atorvastatin 10mg tablet PO SCH (20:21)
[2020-04-14] MEDS: LORazepam 0.5 MG tablet PO PRN (20:27)
[2020-04-15 02:00] VITALS: BP 114/59
[2020-04-15] MEDS: HYDROcodone/acetaminophen 10/325mg tab PO PRN ×3 (03:03→16:51)
[2020-04-15 03:07] LABS: BASOPHILS # (AUTO) 0.1 X10'3 (0-0.2); BASOPHILS % (AUTO) 0.5 % (0-1); EOSINOPHILS # (AUTO) 0.1 X10'3 (0-0.9); EOSINOPHILS % (AUTO) 0.8 % (0-6); HEMATOCRIT 29.2 % (35.0-45.0); HEMOGLOBIN 9.7 g/dl (12.0-16.0); LYMPHOCYTES # (AUTO) 2.2 X10'3 (1.1-4.8); MEAN CORPUSCULAR HEMOGLOBIN 31.2 PG (27.0-31.0); MEAN CORPUSCULAR HGB CONC 33.3 g/dL (33.0-36.5); MEAN CORPUSCULAR VOLUME 93.6 FL (78-98); MEAN PLATELET VOLUME 9.1 FL (7.4-10.4); MONOCYTES # (AUTO) 1.1 X10'3 (0-0.9); MONOCYTES % (AUTO) 9.8 % (2-12); NEUTROPHILS # (AUTO) 8.1 X10'3 (1.8-7.7); NEUTROPHILS % (AUTO) 69.9 % (42-75); PLATELET COUNT 176 X10'3 (140-440); RED BLOOD COUNT 3.12 X10'6 (4.20-5.60); RED CELL DISTRIBUTION WIDTH 13.6 % (11.5-14.5); WHITE BLOOD COUNT 11.6 X10'3 (4.5-11.0)
[2020-04-15 03:18] LABS: ALBUMIN 2.8 G/DL (3.4-5.0); ANION GAP 9 (8-16); BLOOD UREA NITROGEN 14 MG/DL (7-18); BUN/CREATININE RATIO 21.5 (6.6-38.0); CALCIUM 8.6 MG/DL (8.5-10.1); CHLORIDE 104 MMOL/L (99-107); CREATININE 0.65 MG/DL (0.40-0.90); GLUCOSE 92 MG/DL (70-104); POTASSIUM 4.2 MMOL/L (3.5-5.1); SODIUM 138 MMOL/L (135-145); TOTAL CARBON DIOXIDE 24.9 MMOL/L (24-32); eGFR > 90 ML/MIN
[2020-04-15 06:00] VITALS: BP 114/52
--- NOTE | 2020-04-15 06:00 | NUR ---
Patient in room MED 307. I have received report from TATIANA BURNHAM and had the opportunity to ask questions and assume patient care.
--- NOTE | 2020-04-15 07:13 | NUR ---
Problems reprioritized. Patient report given, questions answered & plan of care reviewed with Corina SIMPSON.
[2020-04-15] MEDS: aspirin 81mg tablet.DR PO SCH (08:00)
[2020-04-15] MEDS: magnesium Cl slow-release 64mg tablet PO SCH ×2 (08:15→20:00)
[2020-04-15] MEDS: aspirin 325mg tablet, delayed-release (Ecotrin) PO SCH (08:15)
[2020-04-15] MEDS: nicotine 21mg patch - 24 hr TD SCH (08:15)
[2020-04-15] MEDS: potassium Cl 20 mEq SR tablet PO SCH ×2 (08:15→20:00)
[2020-04-15] MEDS: metoprolol tartrate 12.5mg (1/2 tablet) PO SCH ×2 (08:16→20:00)
[2020-04-15] MEDS: pantoprazole 40mg Tablet.DR PO SCH (08:16)
[2020-04-15] MEDS: lactobacillus rhamnosus 10,000 MMU CELLS/CAPSULE PO SCH ×2 (08:16→20:33)
[2020-04-15 09:13] LABS: MAGNESIUM 1.9 MG/DL (1.5-2.4)
[2020-04-15 10:00] VITALS: BP 92/50
[2020-04-15 14:00] VITALS: BP 113/47
--- NOTE | 2020-04-15 14:45 | NUR ---
F/u for nutrition consult: Pt seen at bedside provided with written and verbal protein education. Pt endorses a great appetite and reports some issues chewing r/t missing teeth though denies texture modification at this time and states she is pending bottom partial dentures. Pt requests chocolate milk with meals, d/w dietary. Last documented BM is 04/08 though pt reports having a large BM today and denies constipation or diarrhea. Pt provided with RD contact information. Will continue to follow. Recommendations: 1) Advance to heart healthy diet as medically indicated 2) Monitor need for additional protein/ONS; chocolate milk BIDBL 3) Routine bowel care 4) Scaled weights per rx Addendum: 04/15/20 at [address] Amended: Links added.
--- NOTE | 2020-04-15 18:35 | NUR ---
Patient in room MED 307. I have received report from Isabel, and had the opportunity to ask questions and assume patient care.
[2020-04-15 19:00] VITALS: BP 93/47
[2020-04-15] MEDS: atorvastatin 10mg tablet PO SCH (20:32)
[2020-04-15] MEDS: Melatonin 3mg tablet PO SCH (20:33)
--- NOTE | 2020-04-15 20:36 | NUR ---
Hold on to her lopressor. SBP less than 100.
[2020-04-15 22:00] VITALS: BP 96/51
[2020-04-16] MEDS: HYDROcodone/acetaminophen 10/325mg tab PO PRN ×2 (01:06→12:22)
[2020-04-16 01:11] VITALS: BP 105/51
[2020-04-16 01:24] LABS: BASOPHILS % (AUTO) 0.5 % (0-1); EOSINOPHILS # (AUTO) 0.2 X10'3 (0-0.9); EOSINOPHILS % (AUTO) 2.5 % (0-6); HEMATOCRIT 29.4 % (35.0-45.0); LYMPHOCYTES # (AUTO) 1.8 X10'3 (1.1-4.8); MEAN CORPUSCULAR HEMOGLOBIN 31.7 PG (27.0-31.0); MEAN CORPUSCULAR VOLUME 93.2 FL (78-98); MEAN PLATELET VOLUME 8.3 FL (7.4-10.4); MONOCYTES # (AUTO) 0.8 X10'3 (0-0.9); MONOCYTES % (AUTO) 9.4 % (2-12); NEUTROPHILS # (AUTO) 5.9 X10'3 (1.8-7.7); NEUTROPHILS % (AUTO) 66.6 % (42-75); PLATELET COUNT 229 X10'3 (140-440); RED BLOOD COUNT 3.16 X10'6 (4.20-5.60); WHITE BLOOD COUNT 8.8 X10'3 (4.5-11.0)
[2020-04-16 01:31] LABS: ALBUMIN 2.7 G/DL (3.4-5.0); ANION GAP 10 (8-16); BLOOD UREA NITROGEN 12 MG/DL (7-18); BUN/CREATININE RATIO 21.1 (6.6-38.0); CALCIUM 8.7 MG/DL (8.5-10.1); CHLORIDE 103 MMOL/L (99-107); CREATININE 0.57 MG/DL (0.40-0.90); GLUCOSE 99 MG/DL (70-104); POTASSIUM 4.1 MMOL/L (3.5-5.1); SODIUM 137 MMOL/L (135-145); TOTAL CARBON DIOXIDE 24.4 MMOL/L (24-32); eGFR > 90 ML/MIN
[2020-04-16 06:30] VITALS: BP 105/51
--- NOTE | 2020-04-16 06:35 | NUR ---
Problems reprioritized. Patient report given to Hawk, questions answered & plan of care reviewed with .
[2020-04-16] MEDS: aspirin 325mg tablet, delayed-release (Ecotrin) PO SCH (07:51)
[2020-04-16] MEDS: lactobacillus rhamnosus 10,000 MMU CELLS/CAPSULE PO SCH (07:51)
[2020-04-16] MEDS: aspirin 81mg tablet.DR PO SCH (07:51)
[2020-04-16] MEDS: pantoprazole 40mg Tablet.DR PO SCH (07:51)
[2020-04-16] MEDS: nicotine 21mg patch - 24 hr TD SCH (07:54)
[2020-04-16] MEDS: potassium Cl 20 mEq SR tablet PO SCH (08:00)
[2020-04-16] MEDS: metoprolol tartrate 12.5mg (1/2 tablet) PO SCH (08:00)
[2020-04-16] MEDS ORDERED: METO25TA6 PO (08:40)
[2020-04-16] MEDS ORDERED: HYDR-4353 PO ×2 (08:40→12:24)
[2020-04-16 10:00] VITALS: BP 100/49
== END 2020-04-16 13:40 | disposition home or self-care (01) | DRG 216 ==
LOC: PCU 3S 14:30 → UNDOADMIN 14:30 → PCU 3S 17:46 → MED 3N 04-08 12:20 → CICU 2S 04-12 10:11 → MED 3N 04-14 14:00
PROVIDERS: ADMIT Family Medicine; ATTEND Family Medicine
PROC: 4A023N6 Measurement of Cardiac Sampling and Pressure, Right Heart, Percutaneous Approach (ICD-10-PCS; 2020-04-09)
PROC: B2111ZZ Fluoroscopy of Multiple Coronary Arteries using Low Osmolar Contrast (ICD-10-PCS; 2020-04-09)
PROC: B2151ZZ Fluoroscopy of Left Heart using Low Osmolar Contrast (ICD-10-PCS; 2020-04-09)
PROC: B3101ZZ Fluoroscopy of Thoracic Aorta using Low Osmolar Contrast (ICD-10-PCS; 2020-04-09)
PROC: B41F1ZZ Fluoroscopy of Right Lower Extremity Arteries using Low Osmolar Contrast (ICD-10-PCS; 2020-04-09)
PROC: 02UG08Z Supplement Mitral Valve with Zooplastic Tissue, Open Approach (ICD-10-PCS; principal; 2020-04-11)
PROC: 02BG0ZZ Excision of Mitral Valve, Open Approach (ICD-10-PCS; 2020-04-11)
PROC: 5A1221Z Performance of Cardiac Output, Continuous (ICD-10-PCS; 2020-04-11)
PROC: 30233N1 Transfusion of Nonautologous Red Blood Cells into Peripheral Vein, Percutaneous Approach (ICD-10-PCS; 2020-04-12)
PROC: 03HY32Z Insertion of Monitoring Device into Upper Artery, Percutaneous Approach (ICD-10-PCS; 2020-04-12)
PROC: 4A133B1 Monitoring of Arterial Pressure, Peripheral, Percutaneous Approach (ICD-10-PCS; 2020-04-12)
PROC: 4A133J1 Monitoring of Arterial Pulse, Peripheral, Percutaneous Approach (ICD-10-PCS; 2020-04-12)
DX: I08.1 Rheumatic disorders of both mitral and tricuspid valves (principal); I50.43 Acute on chronic combined systolic (congestive) and diastolic (congestive) heart failure; F17.210 Nicotine dependence, cigarettes, uncomplicated; F31.9 Bipolar disorder, unspecified; J44.9 Chronic obstructive pulmonary disease, unspecified; I95.9 Hypotension, unspecified; F41.9 Anxiety disorder, unspecified; G43.909 Migraine, unspecified, not intractable, without status migrainosus; I27.20 Pulmonary hypertension, unspecified; Z87.01 Personal history of pneumonia (recurrent); Z90.710 Acquired absence of both cervix and uterus; Z71.6 Tobacco abuse counseling
CPT/HCPCS: 93306; 93312; 93325; 93460; 93567; Z7506; Z7508; 36415; 36430; 36600; 71045; 71046; 80048; 80053; 80202; 82803; 82948; 83036; 83605; 83735; 83880; 84100; 85014; 85018; 85025; 85347; 85384; 85610; 85730; 86885; 86900; 86901; 86920; 87040; 87070; 87081; 87635; 93005; 93880; 93971; 94002; 94640; 94667; 94668; 94760; 97110; 97116; 97161; 97164; 97530; 99152; 99153; A4618; A4620; A6258; A6449; A7000; A7048; C1751; C1760; C1769; C9113; G0378; J0131; J0171; J0690; J1100; J1265; J1644; J1815; J1940; J2001; J2060; J2150; J2250; J2270; J2370; J2405; J2704; J2720; J2930; J3010; J3370; J3480; J3490; J7030; J7040; J7050; J7120; P9016; P9045; P9047; Q9967